=== PATIENT | male | born 1950 | race Caucasian/White ===

== ENCOUNTER 2018-11-30 04:22 | Emergency (ER) | payer OTHER ==
[~2018-11-30] VITALS: Ht 172.7 cm; Wt 72.6 kg
[~2018-11-30 04:22] MED LIST: ALBIPROI INH; ALBU90OI INH; ALBU90OI61 INH; AMOX500 PO; AZIT250 PO; CARB200 PO; CARB200ER; CYCL10 PO; DIAZ5 PO; FENT75TP TOP; GABA300 PO; HYDMOR2 PO; HYDMOR4 PO; LACT10SY PO; LEVFLO500 PO; LORA1 PO; OXYACE5T; PRED20 PO; PROCODE120 PO; RXPROCODSY PO; TAMS.4ER
[2018-11-30 05:16] LABS: BASOPHILS ABSOLUTE AUTO 0.04 K/mm3 (0.00-0.23); BASOPHILS PERCENT AUTO 0 % (0-2); EOSINOPHILS ABSOLUTE AUTO 0.13 K/mm3 (0.00-0.68); EOSINOPHILS PERCENT AUTO 1 % (0-6); Hematocrit 38.5 % (37.0-53.0); IMMATURE GRAN ABSOLUTE AUTO 0.03 K/mm3 (0.00-0.10); IMMATURE GRAN PERCENT AUTO 0 % (0-1); LYMPHOCYTES ABSOLUTE AUTO 1.27 K/mm3 (0.84-5.20); LYMPHOCYTES PERCENT AUTO 14 % (21-46); MONOCYTES PERCENT AUTO 9 % (4-13); Mean Corpuscular HGB 31.2 pg (26.0-34.0); Mean Corpuscular HGB Conc 33.8 g/dL (31.5-36.5); Mean Corpuscular Volume 92 fL (80-100); Mean Platelet Volume 10.1 fL (9.1-12.4); NEUTROPHILS PERCENT AUTO 76 % (41-73); Platelet Count 250 K/mm3 (150-400); RDW Coefficient Variation 12.8 % (11.7-14.2); RDW Standard Deviation 43.4 fL (35.1-46.3); Red Blood Cell Count 4.17 M/mm3 (4.30-5.90); White Blood Cell Count 9.37 K/mm3 (4.00-11.30)
[2018-11-30] MEDS ORDERED: ALBU90OI INH (05:22)
[2018-11-30] MEDS ORDERED: Zithromax250 MG PO (05:22)
[2018-11-30 05:38] LABS: Alanine Aminotransfer (ALT/SGP 39 U/L (12-78); Albumin, Blood 3.5 g/dL (3.4-5.0); Albumin/Globulin Ratio 0.9 (0.8-1.8); Alk Phos 76 U/L (50-136); Anion Gap 7 mmol/L (6-16); Aspartate Aminotrans (AST/SGOT 25 U/L (12-37); Bilirubin, Total 0.3 mg/dL (0.1-1.0); Blood Urea Nitrogen 20 mg/dL (8-24); Bun/Creatinine Ratio 23.1 (12.0-20.0); CO2, Blood 28 mmol/L (21-32); Calcium, Blood 8.6 mg/dL (8.5-10.1); Chloride, Blood 105 mmol/L (98-108); Creatinine, Blood 0.87 mg/dL (0.60-1.20); Globulin, Blood 3.8 g/dL (2.2-4.0); Glomerular Filtration Rate >60 (60-); Glucose, Blood 95 mg/dL (70-99); Sodium, Blood 140 mmol/L (136-145); Total Protein, Blood 7.3 g/dL (6.4-8.2); Troponin I <0.015 ng/mL (0.000-0.040)
[2018-11-30] MEDS ORDERED: SERT100 PO (07:12)
== END 2018-11-30 07:35 | disposition home or self-care (01) ==
LOC: ER 04:22
PROVIDERS: Emergency Medicine
DX: J44.1 Chronic obstructive pulmonary disease with (acute) exacerbation (principal); N40.0 Benign prostatic hyperplasia without lower urinary tract symptoms; G89.29 Other chronic pain; M54.9 Dorsalgia, unspecified; Z88.8 Allergy status to other drugs, medicaments and biological substances; Z87.891 Personal history of nicotine dependence
CPT/HCPCS: 36415; 71045; 80053; 83605; 83880; 84484; 85025; 87040; 93005; 93010; 94640; 96365; 96366; 96375; 99285-25; J2930; J3475; J7030

== ENCOUNTER 2023-10-29 14:20 | Inpatient (IN) | payer OTHER ==
[~2023-10-29] VITALS: Ht 172.7 cm; Wt 66.6 kg
[~2023-10-29 14:20] MED LIST changes: +SERT100 PO; +Zithromax250 MG PO
[2023-10-29 14:55] LABS: BASOPHILS ABSOLUTE AUTO 0.06 K/mm3 (0.00-0.23); BASOPHILS PERCENT AUTO 0 % (0-2); EOSINOPHILS PERCENT AUTO 0 % (0-6); Hematocrit 37.1 % (37.0-53.0); Hemoglobin 13.1 g/dL (13.5-17.5); IMMATURE GRAN ABSOLUTE AUTO 0.71 K/mm3 (0.00-0.10); IMMATURE GRAN PERCENT AUTO 3 % (0-1); LYMPHOCYTES ABSOLUTE AUTO 0.52 K/mm3 (0.84-5.20); LYMPHOCYTES PERCENT AUTO 2 % (21-46); MONOCYTES ABSOLUTE AUTO 1.19 K/mm3 (0.16-1.47); MONOCYTES PERCENT AUTO 4 % (4-13); Mean Corpuscular HGB 31.2 pg (26.0-34.0); Mean Corpuscular HGB Conc 35.3 g/dL (31.5-36.5); Mean Corpuscular Volume 88 fL (80-100); Mean Platelet Volume 10.3 fL (9.1-12.4); NEUTROPHILS ABSOLUTE AUTO 25.07 K/mm3 (1.96-9.15); NEUTROPHILS PERCENT AUTO 91 % (41-73); Platelet Count 234 K/mm3 (150-400); White Blood Cell Count 27.55 K/mm3 (4.00-11.30)
[2023-10-29 15:14] LABS: Albumin, Blood 3.2 g/dL (3.4-5.0); Albumin/Globulin Ratio 0.9 (0.8-1.8); Calcium, Blood 8.4 mg/dL (8.5-10.1); Creatinine, Blood 0.92 mg/dL (0.60-1.20); Globulin, Blood 3.6 g/dL (2.2-4.0); Potassium, Blood 3.9 mmol/L (3.5-5.5); Total Protein, Blood 6.8 g/dL (6.4-8.2)
[2023-10-29] MEDS ORDERED: CefTRIAXone Sodium 1,000 MG in NS 50 ML IV ONE (16:25)
[2023-10-29] MEDS ORDERED: Azithromycin 500 MG in NS 250 ML IV ONE (16:25)
[2023-10-29] MEDS ORDERED: NS 1,000 ML IV SCH ×2 (16:25→18:00)
[2023-10-29] MEDS ORDERED: Ondansetron HCl 2 MG / ML 2ML Vial IV PRN (17:55)
[2023-10-29] MEDS ORDERED: Enoxaparin 40 MG/0.4 ML SYR SC SCH (18:00)
[2023-10-29] MEDS ORDERED: Ipratropium/Albuterol SulF 2.5-0.5MG/3 ML Amp INH PRN (18:00)
--- NOTE | 2023-10-29 19:45 | NUR ---
NEW ADMIT. PATIENT ADMITTED TO ROOM 303 FROM THE ER. PATIENT ARRIVED TO ROOM VIA WHEEL CHAIR AND 1 PERSON ASSIST AND FAMILY AT SIDE. PATIENT ARRIVED WITH TWO PERSONAL BELONGINGS BAGS AND IN PERSONAL CLOTHING. THIS RN TO ASSUME CARE.
[2023-10-29 19:52] VITALS: BP 103/62
--- NOTE | 2023-10-29 20:15 | NUR ---
BEDSIDE SWALLOW COMPLETED. PATIENT PASSED BEDSIDE SWALLOW WITH NO ISSUES. PATIENT ABLE TO TOLERATE FOOD WITH NO N/V.
[2023-10-29] MEDS ORDERED: ASMANEX HFA13 G4 INH (20:25)
[2023-10-29] MEDS ORDERED: STIOLTO RESPIMAT4 G1 INH (20:28)
--- NOTE | 2023-10-29 20:54 | NUR ---
SON VOICED CONCERN FOR FATHERS PTSD FROM BEING IN THE AND REPORTS SLEEPING AIDS WORSEN HIS PTSD. REPORTS PATIENT WILL WAKE UP LOOKING FOR A HELLICOPTER AND MORE MAGS HAVING FLASHBACKS FROM HIS TIME IN THE .
--- NOTE | 2023-10-29 21:15 | NUR ---
HOSPITALIST CONTACTED. ORDERED TO ADVANCE PATIENTS DIET HE HAS PASSED BEDSIDE SWALLOW EVAL WITH OUT ISSUES. DIET ADVANCED.
[2023-10-29] MEDS ORDERED: Hair, Skin & N1 EACH PO (22:22)
[2023-10-29] MEDS ORDERED: Mometasone Furoate Inhaler 220 mcg 14 ACT INH SCH (23:40)
[2023-10-29] MEDS ORDERED: Albuterol HFA200 ACT/6.7 GM INH INH PRN (23:40)
[2023-10-30 03:10] LABS: BASOPHILS ABSOLUTE AUTO 0.05 K/mm3 (0.00-0.23); BASOPHILS PERCENT AUTO 0 % (0-2); EOSINOPHILS ABSOLUTE AUTO 0.01 K/mm3 (0.00-0.68); EOSINOPHILS PERCENT AUTO 0 % (0-6); Hematocrit 35.5 % (37.0-53.0); IMMATURE GRAN ABSOLUTE AUTO 0.54 K/mm3 (0.00-0.10); IMMATURE GRAN PERCENT AUTO 2 % (0-1); LYMPHOCYTES PERCENT AUTO 4 % (21-46); MONOCYTES ABSOLUTE AUTO 0.88 K/mm3 (0.16-1.47); MONOCYTES PERCENT AUTO 4 % (4-13); Mean Corpuscular HGB 30.5 pg (26.0-34.0); Mean Corpuscular HGB Conc 33.8 g/dL (31.5-36.5); Mean Corpuscular Volume 90 fL (80-100); Mean Platelet Volume 10.6 fL (9.1-12.4); NEUTROPHILS ABSOLUTE AUTO 21.03 K/mm3 (1.96-9.15); NEUTROPHILS PERCENT AUTO 90 % (41-73); Platelet Count 206 K/mm3 (150-400); RDW Coefficient Variation 13.2 % (11.7-14.2); RDW Standard Deviation 43.8 fL (35.1-46.3); Red Blood Cell Count 3.93 M/mm3 (4.30-5.90); White Blood Cell Count 23.51 K/mm3 (4.00-11.30)
[2023-10-30 03:34] LABS: Albumin, Blood 2.8 g/dL (3.4-5.0); Albumin/Globulin Ratio 0.8 (0.8-1.8); Bilirubin, Total 0.7 mg/dL (0.1-1.0); Calcium, Blood 8.4 mg/dL (8.5-10.1); Creatinine, Blood 1.05 mg/dL (0.60-1.20); Globulin, Blood 3.5 g/dL (2.2-4.0); Potassium, Blood 4.2 mmol/L (3.5-5.5); Total Protein, Blood 6.3 g/dL (6.4-8.2)
[2023-10-30 05:33] VITALS: BP 111/67
--- NOTE | 2023-10-30 07:12 | NUR ---
SHIFT SUMMARY. PATIENT IS A&OX4. PATIENT INDEPENDENT IN ROOM. PATIENT REPORTS LEFT CHEST PAIN THAT RADIATES TO HIS LOWER LUNG; PATIENT REPORTS THAT IT IS WORSE THEN WHEN HE CAME IN THIS MORNING AT SHIFT CHANGE. PATIENT SLEPT OFF AND ON T/O NIGHT. PATIENT H TELE ON WITH LEADS IN PLACE-NO EVENTS NOTED TONIGHT. BED IS LOCKED IN THE LOWEST POSITION WITH CALL LIGHT IN REACH. REPORT GIVEN TO ON COMING NURSE.
[2023-10-30 07:49] VITALS: BP 108/68
[2023-10-30 07:50] VITALS: BP 108/60
[2023-10-30] MEDS ORDERED: STIOLTO RESPIMAT INH SCH (08:35)
[2023-10-30] MEDS ORDERED: Sertraline HCl 100 MG Tab PO SCH (09:00)
[2023-10-30] MEDS ORDERED: Ketorolac Tromethamine 15mg Vial IV PRN (12:15)
[2023-10-30 15:37] VITALS: BP 102/73
--- NOTE | 2023-10-30 16:10 | NUR ---
SHIFT SUMMARY; PATIENT UP AMBULATING IN HALLS DURING DAY. NADN AND IS INDEPENDANT. ONLY COMPLAINT IS OF LEFT RIB PAIN WHICH IS TREATED WITH IV TORADOL 15MG WITH MUCH SUCCES. PATIENT HAS VISIORS THROUGHOUT DAY AND IS NOTED TO BE SMILING AND LAUGHING. HE USES CALL LIGHT APPRORPIATELY AND VITAL SIGNS ARE STABLE. HE IS NOT FEBRILE. THIS AFTERNOON HIS LUNGS ARE CLEAR IN THE UPPERLOBES HOWEVER LOWR LEFT LOBE IS NOTED TO HAVE COARSENESS AND CRACKLES THAT CLEAR WITH COUGH.
[2023-10-30] MEDS ORDERED: CefTRIAXone Sodium 1,000 MG in NS 100 ML IV SCH (17:00)
[2023-10-30] MEDS ORDERED: NS 250 ML IV PRN (17:45)
[2023-10-30] MEDS ORDERED: Azithromycin 500 MG in NS 250 ML IV SCH (18:00)
[2023-10-30 20:21] VITALS: BP 121/75
[2023-10-31 04:21] VITALS: BP 125/78
[2023-10-31 04:54] LABS: BASOPHILS ABSOLUTE AUTO 0.02 K/mm3 (0.00-0.23); BASOPHILS PERCENT AUTO 0 % (0-2); EOSINOPHILS ABSOLUTE AUTO 0.23 K/mm3 (0.00-0.68); EOSINOPHILS PERCENT AUTO 2 % (0-6); Hematocrit 33.7 % (37.0-53.0); Hemoglobin 11.5 g/dL (13.5-17.5); IMMATURE GRAN ABSOLUTE AUTO 0.05 K/mm3 (0.00-0.10); IMMATURE GRAN PERCENT AUTO 1 % (0-1); LYMPHOCYTES PERCENT AUTO 12 % (21-46); MONOCYTES ABSOLUTE AUTO 0.72 K/mm3 (0.16-1.47); MONOCYTES PERCENT AUTO 7 % (4-13); Mean Corpuscular HGB 30.7 pg (26.0-34.0); Mean Corpuscular HGB Conc 34.1 g/dL (31.5-36.5); Mean Corpuscular Volume 90 fL (80-100); Mean Platelet Volume 11.1 fL (9.1-12.4); NEUTROPHILS ABSOLUTE AUTO 8.49 K/mm3 (1.96-9.15); NEUTROPHILS PERCENT AUTO 79 % (41-73); Platelet Count 191 K/mm3 (150-400); RDW Coefficient Variation 13.1 % (11.7-14.2); RDW Standard Deviation 43.1 fL (35.1-46.3); Red Blood Cell Count 3.75 M/mm3 (4.30-5.90); White Blood Cell Count 10.81 K/mm3 (4.00-11.30)
[2023-10-31 05:33] LABS: Creatinine, Blood 0.93 mg/dL (0.60-1.20)
--- NOTE | 2023-10-31 07:06 | NUR ---
SHIFT SUMMARY. PATIENT IS A&OX4. PATIENT UP AMBULATING IN THE [place]TI[place] THIS MORNING. PATIENT IS ABLE TO MAKE HIS NEEDS KNOWN. PATIENT CALLS APPROPRIATELY. PATIENT WOULD LIKE TO TALK WITH DOCTOR TO SEE ABOUT GETTING ANY OUTPATIENT ABX FILLED TODAY AT THE [facility] SO HE WILL HAVE THEM WHEN HE GETS OUT HE IS LEAVING TO GO TO [place] ON WEDNESDAY 11/01. BED IS LOCKED IN THE LOWEST POSITION WITH CALL LIGHT IN REACH. REPORT GIVEN TO DAYSHIFT NURSE.
[2023-10-31 08:08] VITALS: BP 110/73
== END 2023-10-31 12:00 | disposition home or self-care (01) | DRG 871 ==
LOC: ER 14:20 → MEDS 14:21
PROVIDERS: Family Medicine; Physician Assistant; ADMIT Internal Medicine
DX: A41.9 Sepsis, unspecified organism (principal); J18.9 Pneumonia, unspecified organism; J44.0 Chronic obstructive pulmonary disease with (acute) lower respiratory infection; N40.0 Benign prostatic hyperplasia without lower urinary tract symptoms; M54.9 Dorsalgia, unspecified; G89.29 Other chronic pain; Z85.46 Personal history of malignant neoplasm of prostate; Z79.899 Other long term (current) drug therapy; Z79.51 Long term (current) use of inhaled steroids; Z88.5 Allergy status to narcotic agent; Z88.8 Allergy status to other drugs, medicaments and biological substances; Z87.891 Personal history of nicotine dependence; G50.0 Trigeminal neuralgia; Z98.890 Other specified postprocedural states
CPT/HCPCS: 36415; 71046; 80048; 80053; 83605; 83880; 84484; 85025; 94640; 94664; 94760; 96365; 96367; 96372; 96375; 99285-25; A9270; G0378; J0456; J0696; J1650; J1885; J7030; J7050

== ENCOUNTER → 2023-11-25 | Outpatient (CLI) | payer OTHER ==
[~2023-11-25] MED LIST changes: +ASMANEX HFA13 G4 INH; +Hair, Skin & N1 EACH PO; +STIOLTO RESPIMAT4 G1 INH
== END | disposition home or self-care (01) ==
LOC: LAB 06:30 → LAB SHORT 06:30
DX: J44.9 Chronic obstructive pulmonary disease, unspecified (principal)
CPT/HCPCS: 87070; 87205

== ENCOUNTER → 2025-01-17 | Outpatient (CLI) | payer OTHER ==
[2025-01-17 17:53] LABS: BASOPHILS ABSOLUTE AUTO 0.05 K/mm3 (0.00-0.23); BASOPHILS PERCENT AUTO 1 % (0-2); EOSINOPHILS ABSOLUTE AUTO 0.19 K/mm3 (0.00-0.68); EOSINOPHILS PERCENT AUTO 3 % (0-6); Hematocrit 44.4 % (37.0-53.0); Hemoglobin 15.1 g/dL (13.5-17.5); IMMATURE GRAN ABSOLUTE AUTO 0.01 K/mm3 (0.00-0.10); IMMATURE GRAN PERCENT AUTO 0 % (0-1); LYMPHOCYTES ABSOLUTE AUTO 1.43 K/mm3 (0.84-5.20); LYMPHOCYTES PERCENT AUTO 21 % (21-46); MONOCYTES ABSOLUTE AUTO 0.57 K/mm3 (0.16-1.47); MONOCYTES PERCENT AUTO 9 % (4-13); Mean Corpuscular HGB Conc 34.0 g/dL (31.5-36.5); Mean Corpuscular Volume 90 fL (80-100); NEUTROPHILS ABSOLUTE AUTO 4.49 K/mm3 (1.96-9.15); NEUTROPHILS PERCENT AUTO 67 % (41-73); NRBC ABSOLUTE 0.00 K/mm3 (0.00-0.02); NRBC Auto 0.0 /100 WBC (0.0-0.2); Platelet Count 200 K/mm3 (150-400); RDW Coefficient Variation 13.0 % (11.7-14.2); RDW Standard Deviation 42.9 fL (35.1-46.3)
[2025-01-17 19:00] LABS: Alanine Aminotransfer (ALT/SGP 23 U/L (12-78); Albumin, Blood 4.1 g/dL (3.4-5.0); Albumin/Globulin Ratio 1.2 (0.8-1.8); Anion Gap 6 mmol/L (3-11); Aspartate Aminotrans (AST/SGOT 16 U/L (12-37); Bilirubin, Total 0.5 mg/dL (0.1-1.0); Blood Urea Nitrogen 16 mg/dL (8-24); CHOL/HDL RATIO 2.6; CO2, Blood 30 mmol/L (21-32); Calcium, Blood 9.4 mg/dL (8.5-10.1); Chloride, Blood 104 mmol/L (98-108); Cholesterol 255 mg/dL (50-200); Creatinine, Blood 0.85 mg/dL (0.60-1.20); Globulin, Blood 3.4 g/dL (2.2-4.0); Glucose, Blood 96 mg/dL (70-99); HDL Cholesterol 97 mg/dL (>39); LDL/HDL RATIO 1.5; Low Density Lipoprotein Chol 148 mg/dL (0-110); PSA, %Free 8.5 %; PSA, Free 0.055 ng/mL; Potassium, Blood 4.2 mmol/L (3.5-5.5); Prostate Specific Antigen 0.644 ng/mL (0.000-4.000); Sodium, Blood 136 mmol/L (136-145); Total Protein, Blood 7.5 g/dL (6.4-8.2); Triglycerides 48 mg/dL (30-160); Very Low Density Lipoprot Chol 9 mg/dL (6-32)
[2025-01-18 17:32] LABS: HEPATITIS C AB CIA INTERP Negative (Negative); HEPATITIS C ANTIBODY CIA INDEX <0.02 IV
== END ==
LOC: LAB SHORT 10:49 → LAB 10:49
PROVIDERS: Nurse Practitioner Family
DX: Z00.00 Encounter for general adult medical examination without abnormal findings (principal); C61 Malignant neoplasm of prostate; I50.42 Chronic combined systolic (congestive) and diastolic (congestive) heart failure; Z13.6 Encounter for screening for cardiovascular disorders; Z11.59 Encounter for screening for other viral diseases
CPT/HCPCS: 80053; 80061; 83880; 84153; 84154; 85025; 86803